=== PATIENT | female | born 1960 | race Caucasian/White ===

== ENCOUNTER → 2016-11-11 | Outpatient (CLI) | payer OTHER ==
[~2016-11-11] MED LIST: CELEXA20 MG PO; HYDROCHLOROTHIA25 MG PO; SYNTHROID125 MCG PO
== END | disposition short-term general hospital (02) ==
LOC: CLSURG 08:40
DX: K43.2 Incisional hernia without obstruction or gangrene (principal); Z79.899 Other long term (current) drug therapy